=== PATIENT | male | born 1960 | race Caucasian/White ===

== ENCOUNTER 2017-03-26 01:35 | Emergency (ER) | payer OTHER ==
--- NOTE | ~2017-03-26 | CT16 ---
[facility] A Service of [facility] RADIOLOGY TEXT RESULTS PATIENT: SUSHILA TAYLOR LOCATION: [facility] : 64 UNIT #: [id number] AGE: [address]: Kendrick Carroll MD SEX: M ORDER DR: [id number] [facility] [address] [place], [place] [address] [id number] E MR#: [id number] #: [id number] NAME: SUSHILA TAYOLR. : 1960 SEX: M STUDY DATE/TIME: 03/26/2017 5:29 UNIT: [facility] ROOM: STUDY DESCRIPTION: CT Angio Chest for PE Attending Physician: Kendrick Carroll M.D. Ordering Physician: Jordyn Cm M.D. Primary Care Physician: Agus Saravia M.D. MEDICAL IMAGING REPORT This report is preliminary unless electronic signature is present EXAM CT chest PE protocol HISTORY 57-year-old male chest pain, shortness of air since last night, elevated D-dimer. Heart racing. TECHNIQUE Axial images performed through the chest following IV contrast. 3-D coronal and sagittal reconstructed images reviewed at a workstation. This CT examination was performed with one or more of the following radiation dose reduction techniques: automatic exposure control, adjustment of mA and/or kV according to patient size, and iterative reconstruction. FINDINGS Pulmonary parenchyma suggests early emphysema. Minimal basilar atelectasis. No focal airspace disease or consolidation. No effusions. No mass lesions. Small amount of tracheal debris may be related to bronchitis. Normal enhancement of the pulmonary arteries. Aorta free of dissection or aneurysm. Heart size within normal limits. No significant adenopathy. Visualized upper abdomen appears normal. Osseous structures show mild degenerative changes thoracic spine. There is a moderate amount of induration, soft tissue swelling and edema overlying the right upper pectoralis muscle. Correlate clinically for focal injury. This extends over at least a 10 cm length of the right anterior pectoralis muscle. IMPRESSION 1. No evidence of pulmonary embolus. 2. Mild emphysema. [facility] A Service [facility] RADIOLOGY TEXT RESULTS PATIENT: SUSHILA TAYLOR LOCATION: [facility] #: [id number] : [birth year] UNIT #: [id number] AGE: [address]: Kendrick Carroll MD SEX: M ORDER DR: 3. Moderate amount of soft tissue swelling and edema overlying the anterior aspect of the right pectoralis muscle and extending into the subcutaneous tissues. This extends over at least a 10 cm length in cephalocaudal dimension and may represent a component of a muscle injury or soft tissue contusion. Correlate with clinical history. No defined hematoma or drainable fluid collection. Dictated by... Monika Fraser M.D. THIS IS AN ELECTRONICALLY VERIFIED REPORT Monika Fraser M.D. at 03/26/2017 3:56 PM LAQUITA/dasha TD: 03/26/2017 07:02 JOB #: [id number] MEDICAL IMAGING REPORT Page 1 of 1 COPY
--- NOTE | ~2017-03-26 | EKG ---
PATIENT: SUSHILA TAYLOR UNIT #: [id number] Ventricular Rate: 125 BPM Atrial Rate: 125 BPM P-R Interval: 130 ms QRS Duration: 98 ms Q-T Interval: 366 ms QTC Calculation(Bezet): 528 ms P [place]: 73 degrees Calculated R [place]: 91 degrees Calculated T [place]: 68 degrees Diagnosis Line: Sinus tachycardia Diagnosis Line: Rightward axis Diagnosis Line: Junctional ST depression, probably normal Diagnosis Line: Borderline ECG Diagnosis Line: When compared with ECG of 04-APR-2016 20:34, Diagnosis Line: Vent. rate has increased BY 51 BPM Diagnosis Line: Non-specific change in ST segment in Inferior Diagnosis Line: leads Diagnosis Line: ST now depressed in Anterior leads Diagnosis Line: Confirmed by MAXIMO MCGRATH MD ([id number]) on Diagnosis Line: 03/26/2017 8:10:55 AM INTERPRETING MD: ALCIDES WALL
--- NOTE | ~2017-03-26 | EKG ---
PATIENT: SUSHILA TAYLOR UNIT #: [id number] Ventricular Rate: 99 BPM Atrial Rate: 99 BPM P-R Interval: 158 ms QRS Duration: 96 ms Q-T Interval: 384 ms QTC Calculation(Bezet): 492 ms P [place]: 70 degrees Calculated R [place]: 77 degrees Calculated T [place]: 41 degrees Diagnosis Line: Normal sinus rhythm Diagnosis Line: Prolonged QT Diagnosis Line: Abnormal ECG Diagnosis Line: When compared with ECG of 26-MAR-2017 01:38, Diagnosis Line: (unconfirmed) Diagnosis Line: No significant change was found Diagnosis Line: Confirmed by MAXIMO MCGRATH MD ([id number]) on Diagnosis Line: 03/26/2017 8:11:15 AM INTERPRETING MD: ALCIDES WALL
--- NOTE | ~2017-03-26 | CR72 ---
[facility] A Service of [facility] RADIOLOGY TEXT RESULTS PATIENT: SUSHILA TAYLOR LOCATION: [facility] : 64 UNIT #: [id number] AGE: [address]: Jordyn Cm MD SEX: M ORDER DR: [id number] [facility] [address] [place], [place] [address] [id number] E MR#: [id number] Acc #: [id number] NAME: SUSHILA TAYLOR. : 1960 SEX: M STUDY DATE/TIME: 03/26/2017 3:10 UNIT: [facility] ROOM: STUDY DESCRIPTION: CR Chest Single View Portable Attending Physician: Jordyn Cm M.D. Ordering Physician: Jordyn Cm M.D. Primary Care Physician: Agus Saravia M.D. MEDICAL IMAGING REPORT This report is preliminary unless electronic signature is present EXAM Single view chest INDICATION Shortness of air. Chest pain. 1-day duration. FINDINGS Single portable AP view of the chest compared to 04/04/2016. Heart and mediastinal contour is within normal limits. Lungs are hyperinflated indicative of obstructive lung disease. No pleural effusion. IMPRESSION 1. No acute findings. 2. Hyperinflated lungs suggesting a component of obstructive lung disease. Dictated by... Tirso Melendez M.D. THIS IS AN ELECTRONICALLY VERIFIED REPORT Tirso Melendez M.D. at 03/26/2017 5:22 AM CLAUDIO/isma TD: 03/26/2017 04:13 JOB #: [id number] MEDICAL IMAGING REPORT Page 1 of 1 COPY
[~2017-03-26 01:35] MED LIST: ACETAMINOPHEN325 MG PO; DAKIN'S MODIF1000 ML EXT; DESYREL100 MG PO; HYDROCODON-ACE1 EAC9 PO; IBUPROFEN800 MG PO; LAMICTAL PO; LAMICTAL25 MG PO; LEVAQUIN PO; LITHIUM CARBON600 MG PO; PHENERGAN25 M1 PO
[2017-03-26 03:07] LABS: POC - TROPONIN <0.05 ng/mL (<=0.05)
[2017-03-26 03:34] LABS: BASOPHIL# 0.1 X10e3 (0-0.3); BASOPHIL% 0.5 % (0-2.5); EOSINOPHIL# 0.1 X10e3 (0-0.7); EOSINOPHIL% 0.5 % (0.0-7.0); HEMATOCRIT 45.8 % (38.0-50.0); HEMOGLOBIN 15.6 gm/dL (13.0-16.0); LYMPHOCYTE# 3.4 X10e3 (1.0-3.5); LYMPHOCYTE% 27.9 % (17.0-45.0); MEAN CORPUSCULAR HEMOGLOBIN 31.6 PG (28-34); MONOCYTE# 1.4 X10e3 (0-1.0); MONOCYTE% 11.8 % (3.0-12.0); NEUTROPHIL# 7.2 X10e3 (1.5-7.1); NEUTROPHIL% 59.3 % (40-75); PLATELET COUNT 245 X10e3 (140-420); RED BLOOD COUNT 4.93 X10e (3.90-5.60); RED CELL DISTRIBUTION WIDTH 13.3 % (11.0-15.5); WHITE BLOOD COUNT 12.2 X10e3 (4.0-10.5)
[2017-03-26 03:40] LABS: DIFF IND NO
[2017-03-26 03:43] LABS: PROTHROMBIN TIME (PATIENT) 10.7 SECONDS (9.6-11.5)
[2017-03-26 04:04] LABS: BILIRUBIN, DIRECT 0.2 mg/dL (0.0-0.2); BILIRUBIN,INDIRECT 0.7 mg/dL (0.0-0.9); BILIRUBIN,TOTAL 0.9 mg/dL (0.2-2.0); CALCIUM SERUM 9.9 mg/dL (8.4-10.2); GLOM FILT RATE Estimated 84.4 mL/min (>60); POTASSIUM 3.2 mmol/L (3.5-5.1); PROTEIN TOTAL SERUM 8.3 g/dL (6.0-8.3)
[2017-03-26 04:43] LABS: POC - TROPONIN <0.05 ng/mL (<=0.05)
[2017-03-26 08:03] LABS: AMPHETAMINE POS (NEG); BARBITURATES NEG (NEG); BENZODIAZEPINES NEG (NEG); COCAINE NEG (NEG); MARIJUANA NEG (NEG); OPIATES POS (NEG); TRICYCLIC ANTIDEPRESSANTS NEG (NEG); U METHADONE NEG (NEG)
== END 2017-03-26 07:50 | disposition home or self-care (01) ==
LOC: CED 01:35
PROVIDERS: Emergency Medicine
DX: F43.10 Post-traumatic stress disorder, unspecified (principal); R07.89 Other chest pain; R00.2 Palpitations; F31.9 Bipolar disorder, unspecified; F17.200 Nicotine dependence, unspecified, uncomplicated
CPT/HCPCS: 36415; 71010; 71275; 80048; 80076; 80307; 82553; 84484; 85025; 85379; 85610; 93005; 96361; 96374; 96376; 99284; G0480; J2060; Q9967

== ENCOUNTER 2017-04-18 23:14 | Emergency (ER) | payer OTHER ==
--- NOTE | ~2017-04-18 | CT2 ---
[facility] A Service of [facility] RADIOLOGY TEXT RESULTS PATIENT: SUSHILA ATYLOR LOCATION: [facility] : 64 UNIT #: [id number] AGE: [address]: CLAUDE MARADIAGA APRN SEX: M ORDER DR: [id number] [place] [id number] [facility] [place], [place] [address] [id number] E MR#: [id number] Acc #: [id number] NAME: SUSHILA TAYLOR. : 1960 SEX: M STUDY DATE/TIME: 04/19/2017 3:55 UNIT: [facility] ROOM: STUDY DESCRIPTION: CT Abd and Pelv W Cont Attending Physician: Claude Maradiaga Aprn Ordering Physician: Claude Maradiaga Aprn Primary Care Physician: Agus Saravia M.D. MEDICAL IMAGING REPORT This report is preliminary unless electronic signature is present EXAM CT abdomen and pelvis with contrast INDICATION Left lower quadrant pain since 3 a.m. yesterday. COMPARISON 10/19/2016. TECHNIQUE The patient was given 100 mL of Isovue 370 and axial 5 mm images were obtained through the abdomen and pelvis. This CT examination was performed with one or more of the following radiation dose reduction techniques: automatic exposure control, adjustment of mA and/or kV according to patient size, and iterative reconstruction. FINDINGS Lung bases are clear. The liver, gallbladder, spleen, pancreas, adrenal glands and kidneys are normal. The aorta is normal in size. There is no adenopathy. The bowel is normal. There is no evidence of diverticulitis. The bladder and prostate gland are normal. There is some anterior bulging of the abdominal contents toward the umbilicus but it does not appear to be a true hernia. It is unchanged from 10/19/2016. IMPRESSION 1. No cause for the patient's left-sided pain is identified. 2. No acute findings. [facility] A Service of [facility] RADIOLOGY TEXT RESULTS PATIENT: SUSHILA TAYLOR LOCATION: [facility] : 64 UNIT #: [id number] AGE: [address]: CLAUDE MARADIAGA APRN SEX: M ORDER DR: Dictated by... Zach Carlson M.D. THIS IS AN ELECTRONICALLY VERIFIED REPORT Zach Carlson M.D. at 04/19/2017 1:21 PM BRADY/dasha TD: 04/19/2017 06:19 JOB #: [id number] MEDICAL IMAGING REPORT Page 1 of 1 COPY
[2017-04-19 02:54] LABS: BASOPHIL% 0.2 % (0-2.5); EOSINOPHIL# 0.1 X10e3 (0-0.7); EOSINOPHIL% 0.7 % (0.0-7.0); HEMATOCRIT 48.8 % (38.0-50.0); HEMOGLOBIN 16.4 gm/dL (13.0-16.0); LYMPHOCYTE# 1.9 X10e3 (1.0-3.5); LYMPHOCYTE% 16.9 % (17.0-45.0); MEAN CELL VOLUME 93.9 FL (83-96); MEAN CORPUSCULAR HEMOGLOBIN 31.5 PG (28-34); MEAN CORPUSCULAR HGB CONC 33.5 g/dL (30-36); MEAN PLATELET VOLUME 8.4 FL (6.5-11.5); MONOCYTE# 0.9 X10e3 (0-1.0); MONOCYTE% 7.7 % (3.0-12.0); NEUTROPHIL# 8.4 X10e3 (1.5-7.1); NEUTROPHIL% 74.5 % (40-75); PLATELET COUNT 268 X10e3 (140-420); RED CELL DISTRIBUTION WIDTH 13.6 % (11.0-15.5); WHITE BLOOD COUNT 11.3 X10e3 (4.0-10.5)
[2017-04-19 02:55] LABS: DIFF IND NO
[2017-04-19 03:20] LABS: ALBUMIN SERUM 4.5 g/dL (3.5-5.0); BILIRUBIN, DIRECT 0.1 mg/dL (0.0-0.2); BILIRUBIN,INDIRECT 0.6 mg/dL (0.0-0.9); BILIRUBIN,TOTAL 0.7 mg/dL (0.2-2.0); BUN/CREATININE RATIO 15.55; CALCIUM SERUM 10.2 mg/dL (8.4-10.2); CREATININE SERUM 0.9 mg/dL (0.6-1.4); GLOM FILT RATE Estimated 95.8 mL/min (>60); POTASSIUM 3.6 mmol/L (3.5-5.1); PROTEIN TOTAL SERUM 8.1 g/dL (6.0-8.3)
== END 2017-04-19 05:19 | disposition home or self-care (01) ==
LOC: CED 23:14
PROVIDERS: Nurse Practitioner Family
DX: R10.32 Left lower quadrant pain (principal); J44.9 Chronic obstructive pulmonary disease, unspecified; F43.10 Post-traumatic stress disorder, unspecified; K75.9 Inflammatory liver disease, unspecified; K57.92 Diverticulitis of intestine, part unspecified, without perforation or abscess without bleeding; F17.210 Nicotine dependence, cigarettes, uncomplicated; Z98.890 Other specified postprocedural states
CPT/HCPCS: 36415; 74177; 80048; 80076; 82150; 83690; 85025; 96361; 96374; 96375; 99284; J1170; J2270; J2405; Q9967

== ENCOUNTER 2017-06-03 10:59 | Emergency (ER) | payer OTHER ==
[~2017-06-03] VITALS: Ht 188 cm; Wt 104.3 kg
--- NOTE | ~2017-06-03 | EKG ---
PATIENT: SUSHILA TAYLOR UNIT #: [id number] Ventricular Rate: 111 BPM Atrial Rate: 111 BPM P-R Interval: 162 ms QRS Duration: 96 ms Q-T Interval: 374 ms QTC Calculation(Bezet): 508 ms P [place]: 74 degrees Calculated R [place]: 82 degrees Calculated T [place]: 65 degrees Diagnosis Line: Sinus tachycardia Diagnosis Line: Otherwise normal ECG Diagnosis Line: When compared with ECG of 26-MAR-2017 07:29, Diagnosis Line: No significant change was found Diagnosis Line: Confirmed by MAXIMO MCGRATH MD ([id number]) on Diagnosis Line: 06/04/2017 8:56:40 AM INTERPRETING MD: ALCIDES WALL
== END 2017-06-03 12:52 | disposition home or self-care (01) ==
LOC: CED 10:59
DX: F41.1 Generalized anxiety disorder (principal); J44.9 Chronic obstructive pulmonary disease, unspecified; F17.200 Nicotine dependence, unspecified, uncomplicated; K75.9 Inflammatory liver disease, unspecified
CPT/HCPCS: 93005; 99283